=== PATIENT | male | born 1940 | race Caucasian/White ===

== ENCOUNTER 2017-07-19 06:11 | Day surgery (SDC) | payer MEDICARE, BC ==
[2017-07-19] MEDS ORDERED: ASPIRIN 325 MG TAB PO STA (06:24)
[2017-07-19] MEDS ORDERED: SODIUM CHLORIDE 0.9% 1,000 ML in EMPTY BAG 1 BAG IV ONE (06:24)
[2017-07-19] MEDS ORDERED: ALPRAZolam 0.25 MG TAB PO PRN (06:24)
[2017-07-19 07:10] VITALS: PULSE 60; TEMP 98
[2017-07-19 07:26] LABS: Anion Gap 9 mmol/L; Blood Urea Nitrogen 21 mg/dL (9-20); Calcium 9.3 mg/dL (8.4-10.2); Carbon Dioxide 26 mmol/L (22-30); Chloride 106 mmol/L (98-107); Glucose 93 mg/dL (74-99); Non-African American GFR(MDRD) 53 (>60 ml/min/1.73 sqM); Potassium 4.3 mmol/L (3.5-5.1); Sodium 141 mmol/L (137-145)
[2017-07-19] MEDS: MIDAZOLAM 2 MG/2 ML VIAL IV ONE ×2 (07:53→07:59)
[2017-07-19] MEDS ORDERED: LIDOCAINE 2% INJ 20 MG/ML SQ ONE (07:55)
[2017-07-19] MEDS ORDERED: IODIXANOL 320 MG/ML 100 ML INTRAARTER ONE ×2 (08:09)
[2017-07-19] MEDS ORDERED: SODIUM CHLORIDE 0.9% 1,000 ML IV SCH (08:30)
--- NOTE | 2017-07-19 09:14 | LTR ---
DATE OF SERVICE: 07/19/2017 RE: Bipin Alatorre Dear Marion; Mr. Bipin Alatorre underwent a peripheral angiogram for bilateral lower extremities, intermittent claudication and known history of PAD and prior stenting of both iliac arteries. The peripheral angiogram revealed severe disease involving the left superficial femoral artery in 2 segments. I would consider a conservative medical approach at this point of time in view of the diffuse nature of the disease. If he continues to be symptomatic in spite of maximized medical treatment and walking program, I will consider proceeding with CHAIN MORTISER OPERATOR of the left SFA and left popliteal. I want to thank you and thank Dr. Padgett for allowing me to participate in his care. Sincerely, MD CURTIS Webster / GIANNA: [id number] /
--- NOTE | 2017-07-19 09:27 | AN ---
ANGIOGRAPHY REPORT DATE OF SERVICE: 07/19/2017 PERFORMING PHYSICIAN: Gennaro Conn MD, Minister Of Religion. PROCEDURE PERFORMED: 1. An abdominal aortogram. 2. Bilateral lower extremities runoff. 3. Gradient measurement across the right external iliac artery. INDICATION: This is a pleasant 77-year-old gentleman who sees Dr. Padgett as an outpatient and he sees me for PAD who underwent in the past successful bilateral iliac stenting in A kissing technique, was seen recently in the office for worsening bilateral lower extremity discomfort and intermittent claudication. In view of that, he was brought today to undergo a peripheral angiogram. APPROACH: Right common femoral artery. COMPLICATION: None. LEVEL OF SEDATION: Moderate with a sedation length of 28 minutes. PROCEDURE DESCRIPTION: After obtaining an informed consent, the patient was brought to the Cardiac Damage Inside Adjuster. Under ultrasound guidance, the right common femoral artery was cannulated, I placed a 5- Palestinian sheath there. After that, I did an abdominal aortogram and bilateral lower extremity runoff using 5-Palestinian pigtail catheter which was initially placed at the level of the renal arteries. Then it was pulled into above the bifurcation of the aorta to right and left common iliac arteries. The procedure was completed without any complication. SELECTIVE PERIPHERAL ANGIOGRAM: 1. The abdominal aorta is heavily calcified with mild to moderate diffuse disease. 2. COMMON ILIAC ARTERIES: The right and left common iliac arteries are stented and both the stents are patent. 3. INTERNAL ILIAC ARTERIES: The right and left internal iliac arteries are patent. 4. EXTERNAL ILIAC ARTERIES: The right external iliac artery appeared to have an intermediate lesion in the range of 50% to 60%, but the gradient measurement across it came into be only 10 mm Hg. The left external iliac artery appeared to have mild disease only. 5. COMMON FEMORAL ARTERIES: The right and left common femoral artery appeared to be moderately diseased. 6. PROFUNDA: The right and left profunda are patent. 7. SFA: The right SFA appeared to have mild to moderate diffuse disease. The left SFA appeared to have two lesions in the range of 70%, one in the proximal portion and one in the midportion. 8. POPLITEAL: The right popliteal appeared to have mild disease only and the left popliteal appeared to have severe lesion in the range of 70%. 9. BELOW THE KNEE: There is one vessel runoff below the knee with peroneal only with occluded anterior tibial and posterior tibial arteries. CONCLUSION: 1. Patent stents in both iliac arteries. 2. Intermediate disease involving the right external iliac artery with a gradient measurement of 10 mmHg only. 3. Severe disease involving the left SFA and left popliteal. 4. One vessel runoff below the knee bilaterally with peroneal only. POSTPROCEDURE MANAGEMENT: At this point, I would consider conservative medical approach and medical treatment only and walking program. If the patient continues to be symptomatic, I might consider doing a DELIVERY SALES WORKER of the left SFA and left popliteal. MMODL / IJN: [id number] /
--- NOTE | 2017-07-19 11:44 | IR ---
Fluoroscopy HISTORY: Pain, peripheral vascular occlusive disease 3.1 minutes fluoroscopy time supplied to the referring clinician. 169 intraoperative C-arm images do cument the procedure. See dictated report from cardiology.
[2017-07-19 14:56] VITALS: BP 128/75
[2017-07-19 15:00] VITALS: RESP 20
== END 2017-07-19 15:02 | disposition home or self-care (01) ==
LOC: CATHCVL 06:11
PROVIDERS: ATTEND Internal Medicine Interventional Cardiology
DX: I70.213 Atherosclerosis of native arteries of extremities with intermittent claudication, bilateral legs (principal); I70.0 Atherosclerosis of aorta; Z95.820 Peripheral vascular angioplasty status with implants and grafts; I50.22 Chronic systolic (congestive) heart failure; J91.8 Pleural effusion in other conditions classified elsewhere; I42.9 Cardiomyopathy, unspecified; N18.3 Chronic kidney disease, stage 3 (moderate); Z87.891 Personal history of nicotine dependence; Z79.02 Long term (current) use of antithrombotics/antiplatelets; Z79.82 Long term (current) use of aspirin; Z79.899 Other long term (current) drug therapy
CPT/HCPCS: 36200; 75625; 75716; 76937; 80048; C1769 ×2; C1894; J2001; J2250; Q9967

== ENCOUNTER 2017-12-08 06:16 | Day surgery (SDC) | payer MEDICARE, BC ==
[2017-12-06 10:29] VITALS: BMI 21.5
[~2017-12-08 06:16] MED LIST: SODIUM CHLORIDE 0.9% 1,000 ML in EMPTY BAG 1 BAG IV ONE
[2017-12-08 07:31] LABS: Basophils # (A) 0.1 k/uL (0-0.2); Basophils % (A) 1 %; Eosinophils # (A) 0.2 k/uL (0-0.7); Eosinophils % (A) 3 %; HCT 43.4 % (39.0-53.0); HGB 14.3 gm/dL (13.0-17.5); Lymphocytes # (A) 1.6 k/uL (1.0-4.8); Lymphocytes % (A) 21 %; MCH 30.1 pg (25.0-35.0); MCV 91.2 fL (80.0-100.0); Mean Platelet Volume 7.6; Monocytes # (A) 0.6 k/uL (0-1.0); Monocytes % (A) 8 %; Neutrophils # (A) 4.7 k/uL (1.3-7.7); Neutrophils % (A) 64 %; Platelet Count 208 k/uL (150-450); RBC 4.76 m/uL (4.30-5.90); RDW 13.1 % (11.5-15.5); WBC 7.3 k/uL (3.8-10.6)
[2017-12-08 07:38] LABS: Calcium 9.3 mg/dL (8.4-10.2); Potassium 4.1 mmol/L (3.5-5.1)
[2017-12-08] MEDS ORDERED: MIDAZOLAM 2 MG/2 ML VIAL IVP ONE (07:46)
[2017-12-08] MEDS ORDERED: LIDOCAINE 2% INJ 20 MG/ML SQ ONE (07:48)
[2017-12-08] MEDS ORDERED: HEPARIN SODIUM 1,000 UN/ML (10ML VL) IV ONE (07:55)
[2017-12-08] MEDS: hydrALAZINE HCL 20 MG/ML 1 ML VIAL IVP ONE ×2 (08:51→09:06)
[2017-12-08] MEDS ORDERED: ENALAPRILAT 1.25 MG/ML 1 ML VIAL IVP ONE (09:06)
[2017-12-08] MEDS ORDERED: NITROGLYCERIN 1000MCG/10ML SYRINGE INTRACORON ONE (09:08)
[2017-12-08] MEDS ORDERED: niCARdipine Syringe (1,000 mcg/10 mL) INTRACORON ONE (09:08)
[2017-12-08] MEDS ORDERED: CLOPIDOGREL 75 MG TAB PO ONE (09:20)
[2017-12-08] MEDS ORDERED: IODIXANOL 320 MG/ML 100 ML INTRAARTER ONE (09:20)
[2017-12-08] MEDS ORDERED: SODIUM CHLORIDE 0.9% 1,000 ML IV SCH (09:45)
--- NOTE | 2017-12-08 10:56 | LTR ---
DATE OF SERVICE: 12/08/2017 RE: Bipin Alatorre Dear Dr. Prabhakar: Mr. Bipin Alatorre underwent successful balloon angioplasty of the left femoral artery with good angiographic results and without any complication. I want to thank you for allowing me to participate in his care and please do not hesitate to call if you have any question or concern. Sincerely, Gennaro Conn MD MMCARISSAL / ANGELITON: [id number] /
--- NOTE | 2017-12-08 11:20 | PTCA ---
PERCUTANEOUSTRANS CORORONARY ANGIOGRAPHY DATE OF SERVICE: 12/08/2017 PERFORMING PHYSICIAN: Gennaro Conn MD, skirt clipper. PROCEDURE PERFORMED: 1. Selective left ipudm-hml-dwap angiogram. 2. Selective left popliteal angiogram. 3. Selective left SFA angiogram. 4. Selective right common femoral artery angiogram. 5. An atherectomy of the left popliteal and left SFA using the orbital atherectomy device from Harri. 6. Successful balloon angioplasty of the left popliteal using 5 mm balloon with good angiographic results. 7. Successful stenting of the left SFA using 6 mm drug-coated stent, which was Zilver PTX with good angiographic results as well. INDICATION: This is a pleasant 77-year-old gentleman who sees Dr. Padgett as well as sees Dr. Prabhakar as an outpatient with a known history of peripheral arterial disease and known severe and diffuse bilateral SFA disease, was experiencing severe bilateral lower extremities intermittent claudication. He was treated conservatively for about 6 months, but he continues to have discomfort. In view of that, a percutaneous peripheral intervention was advised. APPROACH: Right common femoral artery. COMPLICATION: None. LEVEL OF SEDATION: Moderate sedation length of 87 minutes. PROCEDURE DESCRIPTION: After obtaining an informed consent, the patient was brought to the cardiac coreroom foundry laborer. The right common femoral artery was cannulated using micropuncture technique, the micropuncture wire passed easily, then I placed a 6-Moroccan sheath 11 cm in the right common femoral artery. After that, I did start anticoagulation using heparin and the patient was given a total of 10,000 units of heparin IV. I did select the left SFA using 0.35 advantage wire with a 5-Moroccan rim catheter. Subsequently, I did exchange my 11 cm 6-Moroccan sheath into 55 cm 6-Moroccan sheath using the Advantage wire. After that I did selective left lgczx-cts-ggxf angiogram, selective left popliteal angiogram, and selective left SFA angiogram. The angiogram revealed severe disease involving the left popliteal and left SFA with only one vessel runoff below the knee on the left side with peroneal. After that, I did exchange my 0.35 advantage wire into 0.14 ViperWire using the 0.35 CXI catheter. After that, I did multiple runs of orbital atherectomy using orbital atherectomy device from Harri. Subsequently, I did balloon angioplasty of the left popliteal using 5 mm balloon and the following angiogram showed good angiographic results. For the left SFA, I did balloon angioplasty using 5 mm balloon but we ended with dissection was flow limiting and I decided to cover that with a stent so I used 2 Zilver PTX drug coated stents. The first one was 6.0 x 120 x 140 and the second one was 6.0 x 40 mm. I did post dilate the 2 stents using 5 mm balloon. The following angiogram showed great angiographic results with excellent flow, definitely brisk flow below the knee and in the left SFA. After that, I did exchange my long sheath into short sheath using the 0.35 advantage wire. After that, I did selective right common femoral artery angiogram. The procedure was completed without any complication. POSTPROCEDURE MANAGEMENT: 1. Surveillance Doppler ultrasound and evaluate the proximal left SFA which was not treated today because the lesion was intermediate to severe. If the Doppler showed that the lesion is severe, need to have a MOBILE HEALTH VEHICLE OPERATOR on that segment. 2. Dual anti-platelet therapy and statin. 3. Follow up with the patient. MMODL / IJN: [id number] /
[2017-12-08] MEDS ORDERED: EDOXABAN TOSYLATE 60 MG TABLET PO SCH (17:30)
[2017-12-08] MEDS ORDERED: LOSARTAN 25 MG TAB PO SCH (21:00)
[2017-12-08] MEDS ORDERED: ATORVASTATIN 10 MG TAB PO SCH (21:00)
[2017-12-08] MEDS: METOPROLOL SUCCINATE (ER) 50 MG TAB.ER.24H PO SCH (21:47)
[2017-12-09 01:32] VITALS: RESP 16
[2017-12-09 04:16] VITALS: PULSE 60
[2017-12-09 07:42] VITALS: BP 142/64; TEMP 98
[2017-12-09] MEDS: METOPROLOL SUCCINATE (ER) 50 MG TAB.ER.24H PO SCH (08:23)
[2017-12-09] MEDS ORDERED: CLOPIDOGREL 75 MG TAB PO SCH (09:00)
[2017-12-09] MEDS ORDERED: ASPIRIN 81 MG PO SCH (09:00)
[2017-12-09] MEDS ORDERED: SPIRONOLACTONE 25 MG TAB PO SCH (09:00)
[2017-12-09] MEDS ORDERED: THIAMINE 100 MG TAB PO SCH (09:00)
--- NOTE | 2017-12-09 10:21 | DS ---
DISCHARGE SUMMARY ADMISSION DATE: 12/08/2017. DISCHARGE DATE: 12/09/2017 BRIEF HISTORY: This is a pleasant 77-year-old gentleman who sees Dr. Padgett in the office as an outpatient who is known to have severe peripheral arterial disease and was experiencing bilateral lower extremities intermittent claudication. He was admitted to the hospital yesterday and underwent successful percutaneous peripheral intervention of the left SFA with good angiographic results and without any complication where the procedure was performed from the right groin. On follow up with him today, he is doing good and he is asymptomatic. He denies having any chest pain or discomfort. The right groin is soft and nontender and without any bruises. The patient is going to be discharged home today on dual anti-platelet therapy and statin and I will follow up with the patient next week in the office. MMCARISSAL / ANGELITON: [id number] /
--- NOTE | 2017-12-09 11:00 | IR ---
Fluoroscopy HISTORY: Pain, peripheral vascular occlusive disease 26.7 minutes fluoroscopy time supplied to the referring clinician. 490 intraoperative C-arm images d ocument the procedure. See dictated report from cardiology.
[2017-12-09] MEDS ORDERED: CHOLECALCIFEROL 1,000 UNIT TAB PO SCH (12:00)
[2017-12-09] MEDS ORDERED: CYANOCOBALAMIN 500 MCG TAB PO SCH (12:00)
== END 2017-12-09 09:43 | disposition home or self-care (01) ==
LOC: CATHCVL 06:16 → 6SEL 13:16 → CATHCVL 12-09 09:43 → 6SEL 12-09 09:53
PROVIDERS: ATTEND Internal Medicine Interventional Cardiology
DX: I70.213 Atherosclerosis of native arteries of extremities with intermittent claudication, bilateral legs (principal); Z95.820 Peripheral vascular angioplasty status with implants and grafts; I50.22 Chronic systolic (congestive) heart failure; N18.3 Chronic kidney disease, stage 3 (moderate); I42.8 Other cardiomyopathies; Z87.891 Personal history of nicotine dependence; E78.5 Hyperlipidemia, unspecified; I48.1 Persistent atrial fibrillation; Z79.02 Long term (current) use of antithrombotics/antiplatelets; Z79.82 Long term (current) use of aspirin; Z79.899 Other long term (current) drug therapy
CPT/HCPCS: 80048; 82565; 85025; J2001; J2250; J0360; Q9967; J1644

== ENCOUNTER 2018-01-05 12:26 | Day surgery (SDC) | payer MEDICARE, BC ==
[2017-12-30 11:00] VITALS: BMI 21.4
[~2018-01-05 12:26] MED LIST changes: +ALPRAZolam 0.25 MG TAB PO PRN; +ASPIRIN 325 MG TAB PO STA
[2018-01-05] MEDS ORDERED: hydrALAZINE HCL 20 MG/ML 1 ML VIAL ONE (13:44)
[2018-01-05] MEDS ORDERED: niCARdipine 25 MG/10 ML VIAL ONE (14:48)
[2018-01-05] MEDS ORDERED: MIDAZOLAM 2 MG/2 ML VIAL IVP ONE (14:54)
[2018-01-05] MEDS ORDERED: LIDOCAINE 2% INJ 20 MG/ML SQ ONE (14:57)
[2018-01-05] MEDS ORDERED: HEPARIN SODIUM 1,000 UN/ML (10ML VL) IV ONE (15:02)
[2018-01-05] MEDS ORDERED: NITROGLYCERIN 1000MCG/10ML SYRINGE INTRAARTER ONE (15:58)
[2018-01-05] MEDS ORDERED: niCARdipine Syringe (1,000 mcg/10 mL) INTRAARTER ONE (15:58)
[2018-01-05] MEDS ORDERED: CLOPIDOGREL 75 MG TAB PO ONE (16:07)
[2018-01-05] MEDS ORDERED: IODIXANOL 320 MG/ML 100 ML INTRAARTER ONE (16:08)
[2018-01-05] MEDS ORDERED: SODIUM CHLORIDE 0.9% 1,000 ML IV SCH (16:15)
[2018-01-05] MEDS ORDERED: hydrALAZINE HCL 20 MG/ML 1 ML VIAL IVP PRN (16:20)
[2018-01-05 16:40] VITALS: RESP 16
[2018-01-05] MEDS: METOPROLOL SUCCINATE (ER) 50 MG TAB.ER.24H PO SCH (19:55)
--- NOTE | 2018-01-05 20:06 | LTR ---
January 05, 2018 To: Dr. [place] Prabhakar Re: Bipin Alatorre (44) Dear Dr. Prabhakar, Mr. Bipin Alatorre underwent successful balloon angioplasty of the right femoral artery with good angiographic results and without any complication. Thank you for allowing me to participate in his care. Sincerely, Gennaro Conn MD MMCARISSAL / ANGELITON: [id number] /
[2018-01-05] MEDS ORDERED: ATROPINE SULFATE 0.1 MG/ML 10ML SYRINGE ONE (20:09)
--- NOTE | 2018-01-05 20:21 | AN ---
ANGIOGRAPHY REPORT DATE OF SERVICE: January 05, 2018 PERFORMING PHYSICIAN: Gennaro Conn MD, machine plug shaper. PROCEDURE PERFORMED: 1. Selective right qmesh-vzj-hkoi angiogram. 2. Selective right SFA angiogram. 3. An atherectomy of the right SFA using the orbital atherectomy device/CSI. 4. Successful balloon angioplasty of the mid right SFA. 5. Stenting of the proximal right SFA using 6.0 x 80 mm Zilver PTX drug coated stent with good angiographic results. INDICATION: This is a pleasant 77-year-old gentleman who sees Dr. Padgett as an outpatient with peripheral arterial disease and known bilateral SFA disease. Patient was experiencing bilateral lower extremities intermittent claudication. He underwent a peripheral angiogram in July of 2017 and that revealed severe bilateral SFA disease. He underwent an intervention of the left SFA and was brought today to undergo an intervention of the right SFA. APPROACH: Left common femoral artery. COMPLICATION: None. LEVEL OF SEDATION: Moderate. Sedation length of 75 minutes. PROCEDURE DESCRIPTION: After obtaining an informed consent, the patient was brought to the cardiac clinical laboratory assistant. The left common femoral artery was cannulated using micropuncture technique, the micropuncture wire passed easily, then I placed an 11 cm 6-Moroccan sheath in the left common femoral artery. After that I did select the right SFA using a 5-Moroccan rim catheter with 035 advantage wire. The Advantage wire was positioned in the right SFA. Subsequently I did exchange my 11 cm 6-Moroccan sheath into 70 cm 6-Moroccan Rabbi sheath using the Advantage wire. At that point, anticoagulation was initiated using heparin. The patient was given weight-based heparin. After that I did selective right atbmy-jzv-iawz angiogram and selective right SFA angiogram to localize the lesion. I did after that wire the right SFA using an 014 hydro XT wire, which after that I did exchange this wire into ViperWire preparing for atherectomy using an 014 catheter. After that, I did multiple runs of atherectomy of the proximal and mid right SFA using the orbital atherectomy device from CSI. After that I did balloon angioplasty of the SFA using 5 mm balloon. The following angiogram showed good results in the mid right SFA, but in the proximal portion of the right SFA, there was a dissection and residual stenosis exceeding 70% which I decided to stent. I did deploy 6 x 80 mm Zilver PTX drug coated stent where the stent was positioned under fluoroscopy guidance and deployed after that. I dilated the stent using 5 mm balloon. The following angiogram showed excellent angiographic results and the procedure was completed without any complication. I did exchange my long sheath into short sheath using the Advantage wire. The procedure was completed without any complication. POSTPROCEDURE MANAGEMENT: 1. Dual anti-platelet therapy. 2. Risk factor modifications. 3. Follow up with the patient. CURTIS / GIANNA: [id number] /
[2018-01-05] MEDS ORDERED: ATORVASTATIN 10 MG TAB PO SCH (21:00)
[2018-01-05] MEDS ORDERED: LOSARTAN 25 MG TAB PO SCH (21:00)
[2018-01-05] MEDS ORDERED: ONDANSETRON 4 MG/2 ML VIAL IVP PRN (22:09)
[2018-01-06] MEDS ORDERED: MORPHINE SULFATE 4 MG/0.8 ML SYRINGE (INJ) IVP PRN (02:20)
[2018-01-06 06:05] LABS: Basophils % (A) 0 %; Eosinophils % (A) 0 %; HCT 36.1 % (39.0-53.0); HGB 12.4 gm/dL (13.0-17.5); Lymphocytes # (A) 0.5 k/uL (1.0-4.8); Lymphocytes % (A) 5 %; MCH 31.3 pg (25.0-35.0); MCHC 34.3 g/dL (31.0-37.0); MCV 91.3 fL (80.0-100.0); Mean Platelet Volume 8.2; Monocytes # (A) 0.5 k/uL (0-1.0); Monocytes % (A) 4 %; Neutrophils # (A) 10.6 k/uL (1.3-7.7); Neutrophils % (A) 91 %; Platelet Count 150 k/uL (150-450); RBC 3.96 m/uL (4.30-5.90); RDW 13.8 % (11.5-15.5); WBC 11.7 k/uL (3.8-10.6)
[2018-01-06 06:15] LABS: Calcium 8.6 mg/dL (8.4-10.2); Potassium 4.3 mmol/L (3.5-5.1)
--- NOTE | 2018-01-06 07:42 | IR ---
Fluoroscopy HISTORY: Peripheral vascular occlusive disease 17.4 minutes fluoroscopy time supplied to the referring clinician. 444 intraoperative C-arm images d ocument the procedure. See dictated report from cardiology.
[2018-01-06 08:05] VITALS: BP 123/70; PULSE 60; TEMP 97
[2018-01-06] MEDS: METOPROLOL SUCCINATE (ER) 50 MG TAB.ER.24H PO SCH (08:05)
[2018-01-06] MEDS ORDERED: CLOPIDOGREL 75 MG TAB PO SCH (09:00)
[2018-01-06] MEDS ORDERED: SPIRONOLACTONE 25 MG TAB PO SCH (09:00)
[2018-01-06] MEDS ORDERED: THIAMINE 100 MG TAB PO SCH (09:00)
[2018-01-06] MEDS ORDERED: ASPIRIN 81 MG PO SCH (09:00)
[2018-01-06] MEDS ORDERED: CYANOCOBALAMIN 500 MCG TAB PO SCH (12:00)
[2018-01-06] MEDS ORDERED: CHOLECALCIFEROL 1,000 UNIT TAB PO SCH (12:00)
--- NOTE | 2018-01-06 16:12 | DS ---
DISCHARGE SUMMARY ADMISSION DATE: January 05, 2018. DISCHARGE DATE: January 06, 2018 BRIEF HISTORY: This is a pleasant 77-year-old gentleman who was experiencing bilateral lower extremities intermittent claudication and underwent a peripheral angiogram in July of 2017 and that revealed severe bilateral SFA disease. Because of the nature of the disease, which was very diffuse, I recommended conservative medical approach for him. He continues to have bilateral lower extremities discomfort interfering with his daily activities and for that reason, he was brought a few weeks ago and underwent ISOTOPE TECHNICIAN of the left leg and yesterday he was brought and underwent ISOTOPE TECHNICIAN of the right leg. The procedure was performed from the left groin which is soft, but is slightly tender. No discrete hematomas seen. The patient is going to be discharged home on dual anti-platelet therapy and I will follow up with him in the office next week. CURTIS / GIANNA: [id number] /
== END 2018-01-06 09:11 | disposition home or self-care (01) ==
LOC: CATHCVL 12:26 → 6SEL 16:10 → CATHCVL 01-06 09:11
PROVIDERS: ATTEND Internal Medicine Interventional Cardiology
DX: I70.213 Atherosclerosis of native arteries of extremities with intermittent claudication, bilateral legs (principal); Z95.820 Peripheral vascular angioplasty status with implants and grafts; E78.5 Hyperlipidemia, unspecified; I50.22 Chronic systolic (congestive) heart failure; I48.1 Persistent atrial fibrillation; N18.3 Chronic kidney disease, stage 3 (moderate); I42.9 Cardiomyopathy, unspecified; Z95.810 Presence of automatic (implantable) cardiac defibrillator; Z79.02 Long term (current) use of antithrombotics/antiplatelets; Z79.82 Long term (current) use of aspirin; Z79.899 Other long term (current) drug therapy
CPT/HCPCS: 37227; 85347; 80048; 85025; C1894 ×2; C1714; C1769 ×3; C1874; C1725; J2001; J2250; J0360; Q9967; J2405; J1644; J2270

== ENCOUNTER 2018-01-17 14:53 | Observation (INO) | payer MEDICARE, BC ==
--- NOTE | 2018-01-17 16:54 | US ---
EXAMINATION TYPE: US lower ext pseudo artery LT DATE OF EXAM: 01/17/2018 COMPARISON: NONE CLINICAL HISTORY: Pain. EXAM PERFORMED: Grayscale and color Doppler duplex imaging performed of the groin, post cardiac sherrie ter to assess for pseudoaneurysm. SIDE PERFORMED: Left Color and Waveform Doppler performed to assess for the presence of pseudoaneurysm; Positive for pseudoaneurysm measuring 2.5cm. No evidence of AV shunting No fluid collection present. IMPRESSION: The exam demonstrates a 2.5 cm diameter pseudoaneurysm of the left femoral artery. There is normal ar terial waveform in the left femoral artery.
--- NOTE | 2018-01-17 17:07 | ED ---
General Adult HPI - General Chief complaint: Recheck/Abnormal Lab/Rx Stated complaint: poss blood clot-post op Time Seen by Provider: 01/17/18 16:52 Source: patient, RN notes reviewed, old records reviewed Mode of arrival: wheelchair Limitations: no limitations - History of Present Illness Initial comments: This is a 77-year-old male the ER for evaluation. Patient resents today for evaluation regards to leg pain patient had cardiac catheterization is had pain since. Patient was sent in for evaluation regarding ULTRASOUND REGARDING CAST SITE WELL FOR POSSIBLE DVT - Related Data Home Medications Medication Instructions Recorded Confirmed Cholecalciferol [Vitamin D3] 1,000 unit PO DAILY 12/30/15 01/17/18 Cyanocobalamin [Vitamin B-12] 1,000 mcg PO DAILY 12/30/15 01/17/18 Losartan [Cozaar] 12.5 mg PO HS 12/30/15 01/17/18 Metoprolol Succinate [Toprol XL] 50 mg PO BID 12/30/15 01/17/18 Spironolactone [Aldactone] 12.5 mg PO DAILY 12/30/15 01/17/18 Thiamine [Vitamin B-1] 100 mg PO DAILY 12/30/15 01/17/18 Atorvastatin [Lipitor] 10 mg PO HS 01/02/16 01/17/18 Aspirin [Adult Low Dose Aspirin EC] 81 mg PO DAILY 03/18/16 01/17/18 Apixaban [Eliquis] 2.5 mg PO BID 12/30/17 01/17/18 Previous Rx's Medication Instructions Recorded Clopidogrel [Plavix] 75 mg PO DAILY #90 tab 12/09/17 Allergies Allergy/AdvReac Type Severity Reaction Status Date / Time morphine AdvReac Nausea & Verified 01/17/18 17:03 Vomiting Review of Systems ROS Statement: Those systems with pertinent positive or pertinent negative responses have been documented in the HPI. ROS Other: All systems not noted in ROS Statement are negative. Past Medical History Past Medical History: Atrial Fibrillation, Hypertension, Pneumonia, Vascular Disorder Additional Past Medical History / Comment(s): wants noted on pts chart that he has a "weak heart-functioning at less than 5%", patient states EF has increased, peripheral vascular disease History of Any Multi-Drug Resistant Organisms: None Reported Past Surgical History: AICD, Heart Catheterization Additional Past Surgical History / Comment(s): 12/08/17 LEFT ANGIOPLASTY WITH STENTS X2, hussein cataracts, aortogram, hussein. iliac stenting, stents to SFA Past Anesthesia/Blood Transfusion Reactions: No Reported Reaction Type of Cardiac Device: AICD Device Placement Date:: UNKNOWN Past Psychological History: No Psychological Hx Reported Smoking Status: Former smoker Past Alcohol Use History: None Reported Past Drug Use History: None Reported - Past Family History Mother Family Medical History: No Reported History Father Family Medical History: Unable to Obtain General Exam - General Exam Comments Initial Comments: (Groin a significant bruise ecchymosis and swelling Limitations: no limitations General appearance: alert, in no apparent distress Head exam: Present: atraumatic, normocephalic, normal inspection Eye exam: Present: normal appearance, PERRL, EOMI. Absent: scleral icterus, conjunctival injection, periorbital swelling ENT exam: Present: normal exam, mucous membranes moist Neck exam: Present: normal inspection. Absent: tenderness, meningismus, lymphadenopathy Respiratory exam: Present: normal lung sounds bilaterally. Absent: respiratory distress, wheezes, rales, rhonchi, stridor Cardiovascular Exam: Present: regular rate, normal rhythm, normal heart sounds. Absent: systolic murmur, diastolic murmur, rubs, gallop, clicks GI/Abdominal exam: Present: soft, normal bowel sounds. Absent: distended, tenderness, guarding, rebound, rigid Extremities exam: Present: normal inspection, full ROM, normal capillary refill. Absent: tenderness, pedal edema, joint swelling, calf tenderness Back exam: Present: normal inspection Neurological exam: Present: alert, oriented X3, CN II-XII intact Psychiatric exam: Present: normal affect, normal mood Skin exam: Present: warm, dry, intact, normal color. Absent: rash Course Vital Signs 01/17/18 15:31 Temperature 97.8 F Pulse Rate 63 Respiratory 18 Rate Blood Pressure 156/76 O2 Sat by Pulse 98 Oximetry - Reevaluation(s) Reevaluation #1: 01/17/18 18:00 Patient is no acute distress no acute pain Medical Decision Making - Medical Decision Making 77 male the ER with positive left lower extremity pseudoaneurysm secondary to outpatient catheterization. Patient will be admitted for intervention, interventional radiology to [facility] Radiology Data Radiology results: report reviewed (Left leg ultrasound positive for pseudoaneurysm left groin), image reviewed Disposition Clinical Impression: Pseudoaneurysm Disposition: ADMITTED IP TO THIS HOSP Condition: Good Is patient prescribed a controlled substance at d/c from ED?: No Referrals: [place] Prabhakar MD [Primary Care Provider] - 1-2 days
[2018-01-17] MEDS ORDERED: SODIUM CHLORIDE 0.9% 1,000 ML IV ONE (17:48)
[2018-01-17] MEDS ORDERED: SODIUM CHLORIDE 0.9% 1,000 ML IV STA (17:48)
--- NOTE | 2018-01-17 18:42 | US ---
EXAMINATION TYPE: US venous doppler duplex LE LT DATE OF EXAM: 01/17/2018 4:47 PM COMPARISON: NONE CLINICAL HISTORY: PAIN. SIDE PERFORMED: LEFT TECHNIQUE: The lower extremity deep venous system is examined utilizing real time linear array sonog tammy with graded compression, doppler sonography and color-flow sonography. VESSELS IMAGED: External Iliac Vein (EIV) Common Femoral Vein Deep Femoral Vein Greater Saphenous Vein * Femoral Vein Popliteal Vein Small Saphenous Vein * Proximal Calf Veins (* superficial vessels) Left Leg: Negative for DVT Heavily calcified arteries with possible stenting, technically difficult due to shadowing. IMPRESSION: No evidence of deep venous thrombosis in the left leg.
[2018-01-17 18:50] LABS: Basophils % (A) 1 %; Eosinophils # (A) 0.2 k/uL (0-0.7); Eosinophils % (A) 2 %; HCT 35.2 % (39.0-53.0); HGB 11.9 gm/dL (13.0-17.5); Lymphocytes # (A) 1.3 k/uL (1.0-4.8); Lymphocytes % (A) 18 %; MCH 30.7 pg (25.0-35.0); MCHC 33.7 g/dL (31.0-37.0); Mean Platelet Volume 7.7; Monocytes # (A) 0.6 k/uL (0-1.0); Monocytes % (A) 7 %; Neutrophils # (A) 5.3 k/uL (1.3-7.7); Neutrophils % (A) 70 %; RBC 3.87 m/uL (4.30-5.90); RDW 13.7 % (11.5-15.5); WBC 7.6 k/uL (3.8-10.6)
[2018-01-17 18:54] LABS: Platelet Count 310 k/uL (150-450)
[2018-01-17 18:59] LABS: INR 1.1 (<1.2); Partial Thromboplastin Time 23.6 sec (22.0-30.0); Prothrombin Time 10.4 sec (9.0-12.0)
[2018-01-17 19:02] LABS: Albumin 3.5 g/dL (3.5-5.0); Calcium 8.9 mg/dL (8.4-10.2); Creatine Kinase 41 U/L (55-170); Magnesium 2.1 mg/dL (1.6-2.3); Phosphorus 3.9 mg/dL (2.5-4.5); Potassium 4.2 mmol/L (3.5-5.1); Total Bilirubin 0.7 mg/dL (0.2-1.3); Total Protein 5.7 g/dL (6.3-8.2)
[2018-01-17 19:11] LABS: Creatine Kinase MB 0.5 ng/mL (0.0-2.4)
[2018-01-17 19:34] LABS: Troponin I <0.012 ng/mL (0.000-0.034)
[2018-01-17] MEDS: METOPROLOL SUCCINATE (ER) 50 MG TAB.ER.24H PO SCH (21:04)
[2018-01-17] MEDS: ATORVASTATIN 10 MG TAB PO SCH (21:04)
[2018-01-17] MEDS: LOSARTAN 25 MG TAB PO SCH (21:04)
[2018-01-18] MEDS ORDERED: THROMBIN (BOVINE) 5,000 UNIT VIAL MISCELLANE STA (08:05)
--- NOTE | 2018-01-18 08:05 | P.HPCAR ---
History of Present Illness H&P Date: 01/18/18 Chief Complaint: Left groin discomfort This is a pleasant 77-year-old gentleman who underwent last week successful atherectomy and balloon angioplasty of the right superficial femoral artery from the left groin approach presented to the emergency room complaining of left groin discomfort. I did see the patient as a follow-up after the procedure in the office last week and he was experiencing left groin discomfort and at that point I found small hematoma without any bruit. I treated the patient conservatively at that point but the pain continues to be there and continues to be severe enough. I called the patient yesterday and I directed the patient to come to the emergency room. He underwent an arterial duplex study and that revealed pseudoaneurysm about 2 cm involving the left groin. I consulted interventional radiology to do thrombin injection on the patient later on today. Beside that the patient is asymptomatic and denies having any chest pain or chest discomfort or difficulty breathing or dizziness or lightheadedness or syncope. The vital signs are stable. Physical Exam Vitals: Vital Signs Temp Pulse Pulse Resp BP BP Pulse Ox 01/18/18 07:30 97.8 F 60 18 134/74 96 01/18/18 00:00 97.5 F L 60 16 130/64 96 01/17/18 20:00 16 01/17/18 19:58 97.9 F 60 16 169/79 99 01/17/18 18:39 98.5 F 65 20 157/85 98 01/17/18 15:31 97.8 F 63 18 156/76 98 Intake and Output 01/17/18 01/18/18 01/18/18 22:59 06:59 14:59 Other: # Voids 1 Weight 67.132 kg Past Medical History Past Medical History: Atrial Fibrillation, Hypertension, Pneumonia, Vascular Disorder Additional Past Medical History / Comment(s): wants noted on pts chart that he has a "weak heart-functioning at less than 5%", patient states EF has improved, peripheral vascular disease, cardiomyopathy History of Any Multi-Drug Resistant Organisms: None Reported Past Surgical History: AICD, Heart Catheterization Additional Past Surgical History / Comment(s): hussein cataracts, aortogram, hussein. iliac stenting, balloon angioplasty lt popliteal balloon angioplsty lt fem artery,stents to lt SFA, balloon angio/ rt fem artery, cardioversion Past Anesthesia/Blood Transfusion Reactions: No Reported Reaction Type of Cardiac Device: AICD Device Placement Date:: 2015 Smoking Status: Former smoker - Past Family History Mother Family Medical History: No Reported History Father Family Medical History: Unable to Obtain Physical Examination Vital Signs Temp Pulse Pulse Resp BP BP Pulse Ox 01/18/18 07:30 97.8 F 60 18 134/74 96 01/18/18 00:00 97.5 F L 60 16 130/64 96 01/17/18 20:00 16 01/17/18 19:58 97.9 F 60 16 169/79 99 01/17/18 18:39 98.5 F 65 20 157/85 98 01/17/18 15:31 97.8 F 63 18 156/76 98 Intake and Output 01/17/18 01/18/18 01/18/18 22:59 06:59 14:59 Other: # Voids 1 Weight 67.132 kg General: Appears Well Cardiac: Regular Rate, Regular Rhythm Lungs: Normal Exam Results 01/17/18 18:35 01/17/18 18:35 Cardiac Enzymes 01/17/18 01/17/18 Range/Units 18:35 18:35 AST 19 (17-59) U/L CK-MB (CK-2) 0.5 (0.0-2.4) ng/mL Troponin I <0.012 (0.000-0.034) ng/mL Coagulation 01/17/18 Range/Units 18:35 PT 10.4 (9.0-12.0) sec APTT 23.6 (22.0-30.0) sec CBC 01/17/18 Range/Units 18:35 WBC 7.6 (3.8-10.6) k/uL RBC 3.87 L (4.30-5.90) m/uL Hgb 11.9 L (13.0-17.5) gm/dL Hct 35.2 L (39.0-53.0) % Plt Count 310 D (150-450) k/uL Comprehensive Metabolic Panel 01/17/18 Range/Units 18:35 Sodium 138 (137-145) mmol/L Potassium 4.2 (3.5-5.1) mmol/L Chloride 104 (98-107) mmol/L Carbon Dioxide 25 (22-30) mmol/L BUN 25 H (9-20) mg/dL Creatinine 0.96 (0.66-1.25) mg/dL Glucose 81 (74-99) mg/dL Calcium 8.9 (8.4-10.2) mg/dL AST 19 (17-59) U/L ALT 25 (21-72) U/L Alkaline Phosphatase 59 (38-126) U/L Total Protein 5.7 L (6.3-8.2) g/dL Albumin 3.5 (3.5-5.0) g/dL Current Medications Generic Name Dose Route Start Last Admin Trade Name Freq PRN Reason Stop Dose Admin Atorvastatin Calcium 10 mg 01/17/18 21:00 01/17/18 21:04 Lipitor PO 10 mg HS [facility] Administration Cholecalciferol 1,000 unit 01/18/18 12:00 Vitamin D3 PO DAILY@1200 RUKHSANA Clopidogrel Bisulfate 75 mg 01/18/18 09:00 Plavix PO DAILY [facility] Cyanocobalamin 1,000 mcg 01/18/18 12:00 Vitamin B-12 PO DAILY@1200 RUKHSANA Losartan Potassium 12.5 mg 01/17/18 21:00 01/17/18 21:04 Cozaar PO 12.5 mg HS RUKHSANA Administration Metoprolol Succinate 50 mg 01/17/18 21:00 01/17/18 21:04 Toprol Xl PO 50 mg BID RUKHSANA Administration Spironolactone 12.5 mg 01/18/18 09:00 Aldactone PO DAILY [facility] Thiamine HCl 100 mg 01/18/18 09:00 Vitamin B-1 PO DAILY [facility] Intake and Output 01/17/18 01/18/18 01/18/18 22:59 06:59 14:59 Other: # Voids 1 Weight 67.132 kg 01/17/18 18:35 01/17/18 18:35 Assessment and Plan Assessment: Assessment #1 pseudoaneurysm of the left groin #2 severe underlying peripheral arterial disease and status post atherectomy and balloon angioplasty of bilateral SFA #3 multiple comorbid conditions Plan #1 the patient is going to have thrombin injection by interventional radiologist later on today #2 continue following up with him.
[2018-01-18] MEDS: METOPROLOL SUCCINATE (ER) 50 MG TAB.ER.24H PO SCH ×2 (10:01→20:23)
[2018-01-18] MEDS: SPIRONOLACTONE 25 MG TAB PO SCH (10:01)
[2018-01-18] MEDS: THIAMINE 100 MG TAB PO SCH (10:01)
[2018-01-18] MEDS: CLOPIDOGREL 75 MG TAB PO SCH (10:01)
--- NOTE | 2018-01-18 11:25 | US ---
ULTRASOUND GUIDED THROMBIN PSEUDOANEURYSM INJECTION: CLINICAL HISTORY: Left groin pseudoaneurysm COMPARISON: Ultrasound 01/17/2018 FINDINGS: The procedure was explained to the patient. The risks, complications, benefits and alternatives were discussed and any questions were answered. Informed consent was obtained. Patient was placed supin e on the ultrasound table and prepped and draped in the usual sterile fashion. Pulses were obtained b efore and during the procedure. Following application of local anesthesia approximately 200 units of thrombin was injected into the pseudoaneurysm with complete thrombosis. [place] artery appear to be pa tent. Pulses were stable post procedure compared to prior to procedure. Patient was stable throughout the procedure. All elements of maximal barrier and sterile technique were utilized. IMPRESSION: 1. Successful ultrasound guided left groin pseudoaneurysm thrombin injection with complete thrombosi s.
[2018-01-18] MEDS ORDERED: CHOLECALCIFEROL 1,000 UNIT TAB PO SCH (12:00)
[2018-01-18] MEDS ORDERED: CYANOCOBALAMIN 500 MCG TAB PO SCH (12:00)
[2018-01-18] MEDS: LOSARTAN 25 MG TAB PO SCH (20:23)
[2018-01-18] MEDS: ATORVASTATIN 10 MG TAB PO SCH (20:23)
[2018-01-18 23:37] VITALS: PULSE 60
[2018-01-19 08:01] VITALS: BP 127/71; RESP 18; TEMP 97.2
[2018-01-19] MEDS: METOPROLOL SUCCINATE (ER) 50 MG TAB.ER.24H PO SCH (08:17)
[2018-01-19] MEDS: CLOPIDOGREL 75 MG TAB PO SCH (08:17)
[2018-01-19] MEDS: THIAMINE 100 MG TAB PO SCH (08:17)
[2018-01-19] MEDS: SPIRONOLACTONE 25 MG TAB PO SCH (08:18)
--- NOTE | 2018-01-19 09:02 | US ---
EXAMINATION TYPE: US lower ext pseudo artery LT DATE OF EXAM: 01/19/2018 COMPARISON: 01/18/2018 CLINICAL HISTORY: pseudoaneurysm. Re-check left groin pseudo s/p Thrombin inj yesterday EXAM PERFORMED: Grayscale and color Doppler duplex imaging performed of the groin, post cardiac sherrie ter to assess for pseudoaneurysm. SIDE PERFORMED: Left Color and Waveform Doppler performed to assess for the presence of pseudoaneurysm; Is there ultrasound evidence of a pseudoaneurysm: No, previous pseudo thrombosed from Thrombin injec tion Is there evidence of AV shunting: No Is there a fluid collection present: No IMPRESSION: Complete thrombosis of pseudoaneurysm.
--- NOTE | 2018-01-19 10:18 | P.DS ---
Providers Date of admission: 01/17/18 17:48 Attending physician: Gennaro Conn Primary care physician: [facility] Course: This is a pleasant 77-year-old gentleman who underwent recently successful balloon angioplasty of the right superficial femoral artery from the left groin approach. He was seen in the office complaining of left groin discomfort and he was found to have small hematoma. He continues to have left groin discomfort which was getting worse. He was sent to the emergency room and he was found to have a small pseudoaneurysm where he received thrombin injection yesterday and repeated ultrasound from today showed no more pseudoaneurysm. He was seen this morning. The left groin discomfort has resolved completely. He is going to be discharged home and follow-up with the office as an outpatient. Patient Condition at Discharge: Good Plan - Discharge Summary Discharge Rx Participant: No New Discharge Prescriptions: Continue Cyanocobalamin [Vitamin B-12] 1,000 mcg PO DAILY Cholecalciferol [Vitamin D3] 1,000 unit PO DAILY Thiamine [Vitamin B-1] 100 mg PO DAILY Losartan [Cozaar] 12.5 mg PO HS Spironolactone [Aldactone] 12.5 mg PO DAILY Metoprolol Succinate [Toprol XL] 50 mg PO BID Atorvastatin [Lipitor] 10 mg PO HS Aspirin [Adult Low Dose Aspirin EC] 81 mg PO DAILY Clopidogrel [Plavix] 75 mg PO DAILY #90 tab Apixaban [Eliquis] 2.5 mg PO BID Discharge Medication List Cholecalciferol [Vitamin D3] 1,000 unit PO DAILY 12/30/15 [History] Cyanocobalamin [Vitamin B-12] 1,000 mcg PO DAILY 12/30/15 [History] Losartan [Cozaar] 12.5 mg PO HS 12/30/15 [History] Metoprolol Succinate [Toprol XL] 50 mg PO BID 12/30/15 [History] Spironolactone [Aldactone] 12.5 mg PO DAILY 12/30/15 [History] Thiamine [Vitamin B-1] 100 mg PO DAILY 12/30/15 [History] Atorvastatin [Lipitor] 10 mg PO HS 01/02/16 [History] Aspirin [Adult Low Dose Aspirin EC] 81 mg PO DAILY 03/18/16 [History] Clopidogrel [Plavix] 75 mg PO DAILY #90 tab 12/09/17 [Rx] Apixaban [Eliquis] 2.5 mg PO BID 12/30/17 [History] Follow up Appointment(s)/Referral(s): Zak Padgett MD [STAFF PHYSICIAN] - 3 Weeks Marion Prabhakar MD [Primary Care Provider] - 1-2 days Gennaro Conn MD [STAFF PHYSICIAN] - 1 Week Patient Instructions/Handouts: Pseudoaneurysm (DC)
== END 2018-01-19 11:53 | disposition home or self-care (01) ==
LOC: EC 14:53 → 3OBS 17:48
PROVIDERS: ADMIT Internal Medicine Interventional Cardiology; ATTEND Internal Medicine Interventional Cardiology
DX: I72.4 Aneurysm of artery of lower extremity (principal); I73.9 Peripheral vascular disease, unspecified; Z79.899 Other long term (current) drug therapy; Z79.82 Long term (current) use of aspirin; Z79.01 Long term (current) use of anticoagulants; Z88.5 Allergy status to narcotic agent; I48.91 Unspecified atrial fibrillation; I10 Essential (primary) hypertension; Z87.01 Personal history of pneumonia (recurrent); Z95.810 Presence of automatic (implantable) cardiac defibrillator; Z95.820 Peripheral vascular angioplasty status with implants and grafts; Z87.891 Personal history of nicotine dependence; I42.9 Cardiomyopathy, unspecified
CPT/HCPCS: 99285 ×2; 96361 ×2; 96360; 80053; 82550; 82553; 83735; 84100; 84484; 85025; 85610; 85730; 93975 ×3; 93971; 93926 ×2; 36002; G0378 ×3

== ENCOUNTER → 2019-02-14 | Outpatient (CLI) | payer MEDICARE, BC ==
--- NOTE | 2019-02-14 08:58 | XR ---
EXAMINATION TYPE: XR chest 2V DATE OF EXAM: 02/14/2019 COMPARISON: 03/24/2016 TECHNIQUE: PA and lateral views submitted. HISTORY: Follow-up abnormal x-ray FINDINGS: There is a moderate to large sized left pleural effusion with consolidation. The heart is markedly en larged. Hyperinflation lungs suggests COPD. No pneumothorax. Cardiac device is seen. Hypertrophic and degenerative changes of the spine. IMPRESSION: 1. COPD with cardiomegaly and moderate to large sized left pleural effusion with consolidation.
== END | disposition home or self-care (01) ==
LOC: RADXRMAIN 08:33
PROVIDERS: ATTEND Internal Medicine Clinical Cardiac Electrophysiology
DX: J90 Pleural effusion, not elsewhere classified (principal); J44.9 Chronic obstructive pulmonary disease, unspecified; I51.7 Cardiomegaly
CPT/HCPCS: 71046

== ENCOUNTER 2020-12-30 09:10 | Emergency (ER) | payer MEDICARE, BC ==
[2020-12-30 09:16] VITALS: TEMP 96.7
--- NOTE | 2020-12-30 09:43 | ED ---
General Adult HPI - General Chief complaint: Abdominal Pain Stated complaint: abd pain/diarrhea Time Seen by Provider: 12/30/20 09:26 Source: patient, family, RN notes reviewed, old records reviewed Mode of arrival: ambulatory Limitations: no limitations - History of Present Illness Initial comments: 80-year-old male presenting for evaluation of a mild cough, diarrhea, concern for coronavirus. Patient also complains of some right flank pain and upper abdominal pain which is been present for many years. This is unchanged and the patient is not concerned about this. He's had some nausea and one episode of vomiting. He states he's not had a measured fever. He has not been immunized against coronavirus. - Related Data Home Medications Medication Instructions Recorded Confirmed Metoprolol Succinate [Toprol XL] 50 mg PO BID 12/30/15 12/30/20 Spironolactone [Aldactone] 25 mg PO DAILY 12/30/15 12/30/20 Atorvastatin Calcium [Lipitor] 40 mg PO HS 12/30/20 12/30/20 Dabigatran [Pradaxa] 150 mg PO BID 12/30/20 12/30/20 Furosemide [Lasix] 40 mg PO DAILY 12/30/20 12/30/20 NIFEdipine [NIFEdipine ER] 30 mg PO DIRECTED 12/30/20 12/30/20 Sacubitril/Valsartan [Entresto 24 1 tab PO BID 12/30/20 12/30/20 mg-26 mg Tablet] Allergies Allergy/AdvReac Type Severity Reaction Status Date / Time morphine AdvReac Nausea & Verified 12/30/20 10:44 Vomiting Review of Systems ROS Statement: Those systems with pertinent positive or pertinent negative responses have been documented in the HPI. ROS Other: All systems not noted in ROS Statement are negative. Past Medical History Past Medical History: Atrial Fibrillation, Hypertension, Pneumonia, Vascular Disorder Additional Past Medical History / Comment(s): wants noted on pts chart that he has a "weak heart-functioning at less than 5%", patient states EF has improved, peripheral vascular disease, cardiomyopathy History of Any Multi-Drug Resistant Organisms: None Reported Past Surgical History: AICD, Heart Catheterization Additional Past Surgical History / Comment(s): hussein cataracts, aortogram, hussein. iliac stenting, balloon angioplasty lt popliteal balloon angioplsty lt fem artery,stents to lt SFA, balloon angio/ rt fem artery, cardioversion Past Anesthesia/Blood Transfusion Reactions: No Reported Reaction Type of Cardiac Device: AICD Device Placement Date:: 2015 Past Psychological History: No Psychological Hx Reported Smoking Status: Former smoker Past Alcohol Use History: None Reported Past Drug Use History: None Reported - Past Family History Mother Family Medical History: No Reported History Father Family Medical History: Unable to Obtain General Exam Limitations: no limitations General appearance: alert, in no apparent distress Head exam: Present: atraumatic, normocephalic Eye exam: Present: normal appearance, PERRL ENT exam: Present: normal exam Neck exam: Present: normal inspection. Absent: tenderness, meningismus Respiratory exam: Present: normal lung sounds bilaterally. Absent: respiratory distress, wheezes Cardiovascular Exam: Present: regular rate, irregular rhythm GI/Abdominal exam: Present: soft. Absent: distended, tenderness, guarding, rebound Extremities exam: Present: normal inspection, normal capillary refill. Absent: pedal edema Neurological exam: Present: alert, oriented X3, CN II-XII intact. Absent: motor sensory deficit Psychiatric exam: Present: normal affect, normal mood Course Vital Signs 12/30/20 12/30/20 12/30/20 09:11 09:25 10:00 Temperature 96.7 F L Pulse Rate 67 60 Respiratory 18 18 16 Rate Blood Pressure 108/64 111/65 107/65 O2 Sat by Pulse 99 97 Oximetry 12/30/20 10:30 Temperature Pulse Rate 60 Respiratory 18 Rate Blood Pressure 100/64 O2 Sat by Pulse 97 Oximetry Medical Decision Making - Medical Decision Making 80-year-old male with nausea vomiting diarrhea, cough. Patient does test positive for coronavirus. He does meet for monoclonal antibodies and is confused multiple antibodies in the emergency department. His hemodynamics are stable. He has normal oxygenation on room air with no respiratory distress. He is instructed to take vitamin D, zinc, vitamin C at home. He is given strict return parameters. - Lab Data Result diagrams: 12/30/20 09:44 Lab Results 12/30/20 12/30/20 Range/Units 09:44 09:44 WBC 5.4 (3.8-10.6) k/uL RBC 4.28 L (4.30-5.90) m/uL Hgb 13.9 (13.0-17.5) gm/dL Hct 39.5 (39.0-53.0) % MCV 92.4 (80.0-100.0) fL MCH 32.5 (25.0-35.0) pg MCHC 35.1 (31.0-37.0) g/dL RDW 13.3 (11.5-15.5) % Plt Count 130 L (150-450) k/uL MPV 9.2 Neutrophils % 75 % Lymphocytes % 15 % Monocytes % 8 % Eosinophils % 0 % Basophils % 1 % Neutrophils # 4.1 (1.3-7.7) k/uL Lymphocytes # 0.8 L (1.0-4.8) k/uL Monocytes # 0.4 (0-1.0) k/uL Eosinophils # 0.0 (0-0.7) k/uL Basophils # 0.0 (0-0.2) k/uL Coronavirus (PCR) Detected A (Not Detectd) Disposition Clinical Impression: COVID-19 Disposition: HOME SELF-CARE Condition: Fair Instructions (If sedation given, give patient instructions): Coronavirus Disease 2019 (COVID-19) Additional Instructions: Please take vitamin D, zinc, vitamin C at home. Please return with any respiratory issues. Is patient prescribed a controlled substance at d/c from ED?: No Referrals: Marion Prabhakar MD [Primary Care Provider] - 1-2 days Time of Disposition: 11:06
[2020-12-30 10:06] LABS: Basophils % (A) 1 %; Eosinophils % (A) 0 %; HCT 39.5 % (39.0-53.0); HGB 13.9 gm/dL (13.0-17.5); Lymphocytes # (A) 0.8 k/uL (1.0-4.8); Lymphocytes % (A) 15 %; MCH 32.5 pg (25.0-35.0); MCHC 35.1 g/dL (31.0-37.0); MCV 92.4 fL (80.0-100.0); Mean Platelet Volume 9.2; Monocytes # (A) 0.4 k/uL (0-1.0); Monocytes % (A) 8 %; Neutrophils # (A) 4.1 k/uL (1.3-7.7); Neutrophils % (A) 75 %; Platelet Count 130 k/uL (150-450); RBC 4.28 m/uL (4.30-5.90); RDW 13.3 % (11.5-15.5); WBC 5.4 k/uL (3.8-10.6)
[2020-12-30 10:32] VITALS: PULSE 60
[2020-12-30] MEDS ORDERED: SODIUM CHLORIDE 0.9% 50 ML IVPB ONE (11:15)
[2020-12-30] MEDS ORDERED: BAMLANIVIMAB (EUA) 700 MG, ETESEVIMAB (EUA) 1,400 MG in SODIUM CHLORIDE 0.9% 50 ML IVPB ONE (11:15)
[2020-12-30 11:21] LABS: Albumin 3.9 g/dL (3.5-5.0); Calcium 8.7 mg/dL (8.4-10.2); Potassium 3.8 mmol/L (3.5-5.1); Total Bilirubin 0.9 mg/dL (0.2-1.3); Total Protein 6.6 g/dL (6.3-8.2)
[2020-12-30 13:01] VITALS: BP 112/70; RESP 16
== END 2020-12-30 13:07 | disposition home or self-care (01) ==
LOC: EC 09:10
DX: U07.1 COVID-19 (principal); I10 Essential (primary) hypertension; I48.91 Unspecified atrial fibrillation; Z87.891 Personal history of nicotine dependence; Z79.01 Long term (current) use of anticoagulants; Z79.899 Other long term (current) drug therapy; Z95.810 Presence of automatic (implantable) cardiac defibrillator
CPT/HCPCS: 36415; 80053; 82150; 83690; 85025; 87635; 99284; Q0245

== ENCOUNTER 2023-10-04 09:47 | Emergency (ER) | payer BC, MEDICARE ==
[2023-10-04 10:10] VITALS: TEMP 98
--- NOTE | 2023-10-04 11:29 | US ---
EXAMINATION TYPE: US venous doppler duplex LE RT DATE OF EXAM: 10/04/2023 11:06 AM COMPARISON: NONE CLINICAL INDICATION: Male, 83 years old with history of pain; rt lat calf lump x 1 week SIDE PERFORMED: Right TECHNIQUE: The lower extremity deep venous system is examined utilizing real time linear array sonog tammy with graded compression, doppler sonography and color-flow sonography. VESSELS IMAGED: Common Femoral Vein Deep Femoral Vein Greater Saphenous Vein * Femoral Vein Popliteal Vein Proximal Calf Veins (* superficial vessels) Right Leg: Negative for DVT Electrician notes: Exam limited by shadowing from calcified arteries IMPRESSION: Some limitations due to shadowing from arterial calcifications. No evidence for DVT withi n the right lower extremity imaged from the groin to the upper calf.
--- NOTE | 2023-10-04 12:02 | US ---
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 Redness and swelling TECHNIQUE: several images taken at area of concern FINDINGS: Muffler Tender notes: 4.8x1.9x0.8cm complex hypoechoic area noted at area of red palpable are a. Edema noted around area. No vascular involvement visualized. IMPRESSION: Located at the right lateral calf area of concern, there is an elongated collection measuring 4.8 x 1 .9 x 0.8 cm that appears to be localized to the subcutaneous adipose layer. Hematoma and infective fl uid are both in the differential. Clinically correlate.
[2023-10-04 12:37] VITALS: BP 130/68; PULSE 59; RESP 18
--- NOTE | 2023-10-04 12:45 | ED ---
Extremity Problem HPI - General Chief complaint: Extremity Problem,Nontraumatic Stated complaint: R Leg Lump, sent by Vascular Time Seen by Provider: 10/04/23 10:16 Source: patient, RN notes reviewed Mode of arrival: ambulatory Limitations: no limitations - History of Present Illness Initial comments: 83-year-old male presents emergency Department with chief complaint of right leg bone, swelling. Patient states is not for several days is on a number injury based states he is on blood thinners. He states that he has some tenderness over the site denies fevers or chills. He states he has stents in his groin bilaterally by Dr. Conn for blockages. Patient denies any difficulty breathing or shortness of breath. - Related Data Home Medications Medication Instructions Recorded Confirmed Metoprolol Succinate [Toprol XL] 50 mg PO BID 12/30/15 12/30/20 Spironolactone [Aldactone] 25 mg PO DAILY 12/30/15 12/30/20 Atorvastatin Calcium [Lipitor] 40 mg PO HS 12/30/20 12/30/20 Dabigatran [Pradaxa] 150 mg PO BID 12/30/20 12/30/20 Furosemide [Lasix] 40 mg PO DAILY 12/30/20 12/30/20 NIFEdipine [NIFEdipine ER] 30 mg PO DIRECTED 12/30/20 12/30/20 Sacubitril/Valsartan [Entresto 24 1 tab PO BID 12/30/20 12/30/20 mg-26 mg Tablet] Allergies Allergy/AdvReac Type Severity Reaction Status Date / Time morphine AdvReac Nausea & Verified 10/04/23 09:49 Vomiting Review of Systems ROS Statement: Those systems with pertinent positive or pertinent negative responses have been documented in the HPI. ROS Other: All systems not noted in ROS Statement are negative. Past Medical History Past Medical History: Atrial Fibrillation, Hypertension, Pneumonia, Vascular Disorder Additional Past Medical History / Comment(s): wants noted on pts chart that he has a "weak heart-functioning at less than 5%", patient states EF has improved, peripheral vascular disease, cardiomyopathy History of Any Multi-Drug Resistant Organisms: None Reported Past Surgical History: AICD, Heart Catheterization Additional Past Surgical History / Comment(s): hussein cataracts, aortogram, hussein. iliac stenting, balloon angioplasty lt popliteal balloon angioplsty lt fem artery,stents to lt SFA, balloon angio/ rt fem artery, cardioversion Past Anesthesia/Blood Transfusion Reactions: No Reported Reaction Type of Cardiac Device: AICD Device Placement Date:: 2015 Past Psychological History: No Psychological Hx Reported Smoking Status: Former smoker Past Alcohol Use History: None Reported Past Drug Use History: None Reported - Past Family History Mother Family Medical History: No Reported History Father Family Medical History: Unable to Obtain General Exam Limitations: no limitations General appearance: alert, in no apparent distress Head exam: Present: atraumatic, normocephalic, normal inspection Respiratory exam: Present: normal lung sounds bilaterally. Absent: respiratory distress, wheezes, rales, rhonchi, stridor Cardiovascular Exam: Present: regular rate, normal rhythm, normal heart sounds. Absent: systolic murmur, diastolic murmur, rubs, gallop, clicks Extremities exam: Present: other (Right lower extremity there is lateral area of swelling approximately 2 cm from the distal tib-fib region he has mild leg swelling otherwise no significant erythema equal color equal warmth) Course Vital Signs 10/04/23 10/04/23 09:49 12:20 Temperature 98 F Pulse Rate 65 59 L Respiratory 16 18 Rate Blood Pressure 131/74 130/68 O2 Sat by Pulse 99 100 Oximetry Medical Decision Making - Medical Decision Making Was pt. sent in by a medical professional or institution (MAKENZIE Christine, POPULATION GENETICIST, urgent care, hospital, or longterm...) When possible be specific @ -No Did you speak to anyone other than the patient for history (EMS, parent, family, police, friend...)? What history was obtained from this source @ -No Did you review nursing and triage notes (agree or disagree)? Why? @ -I reviewed and agree with nursing and triage notes Were old charts reviewed (outside hosp., previous admission, EMS record, old EKG, old radiological studies, urgent care reports/EKG's, longterm records)? Report findings @ -No old charts were reviewed Differential Diagnosis (chest pain, altered mental status, abdominal pain women, abdominal pain men, vaginal bleeding, weakness, fever, dyspnea, syncope, headache, dizziness, GI bleed, back pain, seizure, CVA, palpatations, mental h ealth, musculoskeletal)? @ -Hematoma, abscess, superficial thrombophlebitis, DVT EKG interpreted by me (3pts min.). @ -none X-rays interpreted by me (1pt min.). @ -None done CT interpreted by me (1pt min.). @ -None done U/S interpreted by me (1pt. min.). @ -Ultrasound venous upper right leg no evidence of DVT Ultrasound right lower extremity nonvascular mass evaluation showing evidence of hematoma What testing was considered but not performed or refused? (CT, X-rays, U/S, labs)? Why? @ -None What meds were considered but not given or refused? Why? @ -None Did you discuss the management of the patient with other professionals (professionals i.e. DrRussel, PA, POPULATION GENETICIST, lab, RT, psych nurse, social insurance analyst, set up mechanic coating machines, teacher, special weapons and tactics officer, case management social worker)? Give summary @ -No Was smoking cessation discussed for >3mins.? @ -No Was critical care preformed (if so, how long)? @ -No Were there social determinants of health that impacted care today? How? (Homelessness, low income, unemployed, alcoholism, drug addiction, trans portation, low edu. Level, literacy, decrease access to med. care, fpc, rehab)? @ -No Was there de-escalation of care discussed even if they declined (Discuss DNR or withdrawal of care, Hospice)? DNR status @ -No What co-morbidities impacted this encounter? (DM, HTN, Smoking, COPD, CAD, Cancer, CVA, ARF, Chemo, Hep., AIDS, mental health diagnosis, sleep apnea, morbid obesity)? @ -None Was patient admitted / discharged? Hospital course, mention meds given and route, prescriptions, significant lab abnormalities, going to OR and other pertinent info. @ -Discharge. Has a right lower leg hematoma there is no signs of infection is neurovascularly intact will be discharged in stable condition for follow-up with his PCP, analytical laboratory technician. Undiagnosed new problem with uncertain prognosis? @ -No Drug Therapy requiring intensive monitoring for toxicity (Heparin, Nitro, Insulin, Cardizem)? @ -No Were any procedures done? @ -No Diagnosis/symptom? @ -[Right leg hematoma Acute, or Chronic, or Acute on Chronic? @ -[Acute Uncomplicated (without systemic symptoms) or Complicated (systemic symptoms)? @ -[Uncomplicated Side effects of treatment? @ -No Exacerbation, Progression, or Severe Exacerbation? @ -No Poses a threat to life or bodily function? How? (Chest pain, [place], [place], pneumonia, PE, COPD, DKA, ARF, appy, cholecystitis, CVA, Diverticulitis, Homicidal, Suicidal, threat to staff... and all critical care pts) @ -No Disposition Clinical Impression: Hematoma of right lower extremity Disposition: HOME SELF-CARE Condition: Stable Instructions (If sedation given, give patient instructions): Hematoma (ED) Additional Instructions: Please return to the Emergency Department if symptoms worsen or any other concerns. Is patient prescribed a controlled substance at d/c from ED?: No Referrals: Marion Prabhakar MD [Primary Care Provider] - 1-2 days Time of Disposition: 12:45
[2023-10-04] MEDS ORDERED: ONDANSETRON 4 MG/2 ML VIAL IVP PRN (12:48)
[2023-10-04] MEDS ORDERED: NALOXONE 0.4 MG/ML 1 ML VIAL IV PRN (12:48)
[2023-10-04] MEDS ORDERED: HYDROmorphone 0.5 MG/0.5 ML SYRINGE IVP PRN (12:48)
[2023-10-04] MEDS ORDERED: HYDROcodone/APAP 5-325MG 1 EACH TAB PO PRN (12:48)
== END 2023-10-04 13:21 | disposition home or self-care (01) ==
LOC: EC 09:47
DX: S80.11XA Contusion of right lower leg, initial encounter (principal); I10 Essential (primary) hypertension; I48.91 Unspecified atrial fibrillation; Z79.01 Long term (current) use of anticoagulants; Z79.899 Other long term (current) drug therapy; Z87.891 Personal history of nicotine dependence; Z88.5 Allergy status to narcotic agent; X58.XXXA Exposure to other specified factors, initial encounter
CPT/HCPCS: 99284

== ENCOUNTER → 2024-11-06 | Outpatient (CLI) | payer MEDICARE ==
--- NOTE | 2024-11-07 06:20 | XR ---
EXAMINATION TYPE: XR ankle complete LT DATE OF EXAM: 11/06/2024 4:34 PM COMPARISON: None. CLINICAL INDICATION: Male, 84 years old with history of R22.40 LOCALIZED SWELLING, MASS AND LUMP, UNS PECIFIED, pain TECHNIQUE: Frontal, lateral and oblique images of the left ankle are obtained. FINDINGS: There is no acute fracture/dislocation evident in the left ankle. The ankle mortise appea rs within normal limits. Some posterior arterial vascular calcification is present. No suspicious zakiya ny destruction. Mild to moderate diffuse subcutaneous edema with mild focal soft tissue swelling over the lateral malleolus. IMPRESSION: As above. [facility], , 11/07/2024 6:18 AM
== END | disposition home or self-care (01) ==
LOC: RADXRMAIN 16:21
PROVIDERS: ATTEND Family Medicine
DX: R22.42 Localized swelling, mass and lump, left lower limb (principal)